=== PATIENT | female | born 1940 | race American Indian/Alaskan Native ===

== ENCOUNTER 2017-02-16 16:06 | Inpatient (IN) | payer MEDICARE ==
[2017-02-16 16:17] VITALS: BMI 24.6
[2017-02-16 16:28] LABS: ADD MANUAL DIFF? NO
--- NOTE | 2017-02-16 16:28 | ED PDOC ---
Arrival/HPI - General Chief Complaint: Weakness/Neurological Deficit Time Seen by Provider: 02/16/17 16:15 Historian: Patient - History of Present Illness Narrative History of Present Illness (Text): 02/16/17 16:31 A 76 year old female, whose past medical history includes hypertension, diabetes and hypothyroidism, presents to the emergency department with onset slurred speech around 15:30 today and stroke. Patient was baseline previous to episode. Patient symptoms currently resolved. Blood pressure during episode was 200 systolic. Denies fever or any other complaints at this time. Symptom Onset: Sudden Symptom Course: Improving Activities at Onset: Rest Context: Home Past Medical History - Provider Review Nursing Documentation Reviewed: Yes - Cardiac Hx Cardiac Disorders: Yes Hx Hypertension: Yes Hx Pacemaker: No - Pulmonary Hx Respiratory Disorders: No - Neurological Hx Neurological Disorder: No - HEENT Hx HEENT Disorder: Yes Hx Cataracts: Yes (BILAT IOL) - Renal Hx Renal Disorder: No - Endocrine/Metabolic Hx Endocrine Disorders: Yes Hx Diabetes Mellitus Type 2: Yes Hx Hypothyroidism: Yes (THYROIDECTOMY GOITER) - Hematological/Oncological Hx Blood Disorders: Yes Hx Anemia: Yes Hx Cancer: Yes (breast) - Integumentary Hx Dermatological Disorder: No - Musculoskeletal/Rheumatological Hx Musculoskeletal Disorders: No Hx Falls: No - Gastrointestinal Hx Gastrointestinal Disorders: Yes Other/Comment: DIVERTICULOSIS - Genitourinary/Gynecological Hx Genitourinary Disorders: No - Psychiatric Hx Psychophysiologic Disorder: No Hx Emotional Abuse: No Hx Physical Abuse: No Hx Substance Use: No - Surgical History Hx Mastectomy: Yes (on right) Other/Comment: Lumpectomy on left . - Anesthesia Hx Anesthesia Reactions: No Hx Malignant Hyperthermia: No - Suicidal Assessment Feels Threatened In Home Enviroment: No Family/Social History - Physician Review Nursing Documentation Reviewed: Yes Family/Social History: No Known Family HX Smoking Status: Never Smoked Hx Alcohol Use: No Hx Substance Use: No Allergies/Home Meds Allergies/Adverse Reactions: Allergies Penicillins Allergy (Severe, Verified 02/16/17 16:17) ANAPHYLAXIS CHOCOLATE Allergy (Severe, Uncoded 02/16/17 16:17) ITCHING Home Medications: Home Meds Medication Instructions Recorded Confirmed Aspirin [Ecotrin] 81 mg PO HS 01/18/16 02/16/17 Cholecalciferol (Vitamin D3) 4,000 unit PO DAILY MDD .noweekends 01/18/16 [Vitamin D3] Fish Oil/Vit E/Fat No.5/Hc137 1 cap PO .3TIMES A WEEK 01/18/16 02/16/17 [Super Stow-3 Softgel] Folic Acid/Mv,Iron,Min [Centrum 1 tab PO .TWICEPERWEEK 01/18/16 02/16/17 Chewable Tablet] Glimepiride 1 mg PO HS 01/18/16 02/16/17 Levothyroxine Sodium [Levoxyl] 88 mcg PO DAILY 01/18/16 02/16/17 Losartan/Hydrochlorothiazide 1 tab PO DAILY 01/18/16 02/16/17 [Hyzaar 25 mg-100 mg] Metformin ER [Glucophage XR] 750 mg PO BID 01/18/16 02/16/17 Potassium Chloride 10 meq PO MWF 01/18/16 02/16/17 Simvastatin 20 mg PO HS 01/18/16 02/16/17 amLODIPine [Norvasc] 10 mg PO DAILY 01/18/16 02/16/17 Review of Systems - Physician Review All systems were reviewed & negative as marked: Yes - Review of Systems Systems not reviewed;Unavailable: Acuity of Condition Physical Exam Vital Signs Reviewed: Yes Vital Signs Temp Pulse Resp BP Pulse Ox 02/16/17 18:45 98 F 71 20 153/71 H 98 02/16/17 17:15 162/76 H 02/16/17 16:17 98.4 F 106 H 16 173/79 H 95 Temperature: Afebrile Blood Pressure: Hypertensive Pulse: Tachycardic Respiratory Rate: Normal Appearance: Positive for: Well-Appearing, Non-Toxic, Comfortable Pain Distress: None Mental Status: Positive for: Alert and Oriented X 3 Finger Stick Blood Glucose: 147 - Systems Exam Head: Present: Atraumatic, Normocephalic Pupils: Present: PERRL Extroacular Muscles: Present: EOMI Conjunctiva: Present: Normal Mouth: Present: Moist Mucous Membranes Neck: Present: Normal Range of Motion Respiratory/Chest: Present: Clear to Auscultation, Good Air Exchange. No: Respiratory Distress, Accessory Muscle Use Cardiovascular: Present: Regular Rate and Rhythm, Normal S1, S2. No: Murmurs Abdomen: Present: Normal Bowel Sounds. No: Tenderness, Distention, Peritoneal Signs Back: Present: Normal Inspection Upper Extremity: Present: Normal Inspection. No: Cyanosis, Edema Lower Extremity: Present: Normal Inspection. No: Edema Neurological: Present: GCS=15, CN II-XII Intact, Speech Normal Skin: Present: Warm, Dry, Normal Color. No: Rashes Psychiatric: Present: Alert, Oriented x 3, Normal Insight, Normal Concentration Medical Decision Making ED Course and Treatment: 02/16/17 16:28 Impression: A 76 year old female with episode of stroke. Plan: -- EKG -- CT Head -- chest xray -- labs -- Reassess and disposition Prior Visits: Notes and results from previous visits were reviewed. Patient last reported to the emergency department on 05/28/16 for evaluation of elevated blood pressure. Progress Notes: 02/16/17 16:44 CT HEAD WITHOUT CONTRAST Creator : Harris Middleton MD FINDINGS: HEMORRHAGE: No intracranial hemorrhage. BRAIN: No mass effect or edema. No atrophy or chronic microvascular ischemic changes. VENTRICLES: Unremarkable. No hydrocephalus. CALVARIUM: Unremarkable. PARANASAL SINUSES: Unremarkable as visualized. No significant inflammatory changes. MASTOID AIR CELLS: Unremarkable as visualized. No inflammatory changes. OTHER FINDINGS: Heavily calcified carotid arteries IMPRESSION: No acute findings. - Lab Interpretations Lab Results: 02/16/17 16:20 02/16/17 16:20 Lab Results 02/16/17 16:40: Blood Type Confirm O POSITIVE 02/16/17 16:20: Blood Type O POSITIVE, Antibody Screen Negative, BBK History Checked No verified bt 02/16/17 16:20: Sodium 141, Potassium 3.4 L, Chloride 102, Carbon Dioxide 26, Anion Gap 16, BUN 12, Creatinine 0.7, Est GFR ( Amer) > 60, Est GFR (Non- Af Amer) > 60, Random Glucose 127 H, Calcium 8.6, Total Bilirubin 0.4, AST 23, ALT 23, Alkaline Phosphatase 75, Lactate Dehydrogenase 423, Total Creatine Kinase 132, Troponin I < 0.01, Total Protein 8.1, Albumin 4.5, Globulin 3.5, Albumin/Globulin Ratio 1.3, Triglycerides 268 H, Cholesterol 144, LDL Cholesterol Direct 82, HDL Cholesterol 31 02/16/17 16:20: PT 11.8, INR 1.09 H, APTT 26.6 02/16/17 16:20: WBC 11.5 H D, RBC 4.35, Hgb 11.4 L, Hct 34.9 L, MCV 80.2, MCH 26.2, MCHC 32.7, RDW 15.9 H, Plt Count 335, MPV 9.4, Gran % 67.3, Lymph % (Auto ) 26.0, [place] % (Auto) 3.7, Eos % (Auto) 2.7, Baso % (Auto) 0.3, Gran # 7.72 H, Lymph # 3.0, [place] # 0.4, Eos # 0.3, Baso # 0.03 I have reviewed the lab results: Yes - RAD Interpretation Radiology Orders: 02/16/17 16:19 HEAD W/O (CODE STROKE) [CT] Stat CHEST ONE VIEW [RAD] Stat - EKG Interpretation Interpreted by ED Physician: Yes Type: 12 lead EKG - Medication Orders Current Medication Orders: Amlodipine Besylate (Norvasc) 10 mg PO DAILY [facility] Aspirin (Ecotrin) 81 mg PO HS MARIANA Last Admin: 02/16/17 21:48 Dose: 81 mg Atorvastatin Calcium (Lipitor) 10 mg PO HS [facility] Last Admin: 02/16/17 21:47 Dose: 10 mg Cholecalciferol (Vitamin D) 4,000 iu PO DAILY MARIANA Glimepiride (Amaryl) 1 mg PO HS [facility] Last Admin: 02/16/17 21:47 Dose: 1 mg Hydrochlorothiazide (Hydrodiuril) 25 mg PO DAILY [facility] Insulin Human Regular (Humulin R Low) 0 units SC ACHS MARIANA PRN Reason: Protocol Last Admin: 02/16/17 22:00 Dose: Not Given Non-Admin Reason: Blood Sugar Parameter Levothyroxine Sodium (Synthroid) 88 mcg PO DAILY [facility] Losartan Potassium (Cozaar) 100 mg PO DAILY [facility] Metformin HCl (Glucophage Xr) 750 mg PO BID [facility] Non-Formulary Medication (Folic Acid/Mv,Iron,Min [Centrum Chewable Tablet]) 1 tab PO .TWICEPERWEEK MARIANA Discontinued Medications Aspirin (Aspirin) 325 mg PO STAT STA Stop: 02/16/17 16:46 Last Admin: 02/16/17 16:58 Dose: 325 mg NIHSS Scale ([place]) Time Performed: 16:20 - How Severe is the Stoke Baseline Level of Consciousness: 0=Alert LOC to Questions: 0=Both comments correct LOC to commands: 0=Obeys both correctly Best Gaze: 0=Normal Visual: 0=No visual loss Facial: 0=Normal Motor Arm - Left: 0=No drift Motor Arm - Right: 0=No drift Motor Leg - Left: 0=No drift Motor Leg - Right: 0=No drift Limb Ataxia: 0=Absent Sensory: 0=Normal Best Language: 0=No aphasia Dysarthia: 0=Normal articulation Extinction & Inattention (Neglect): 0=Normal, no object Score: 0 Risk Level: No Stroke Risk rTPA Inclusion/Exclusion - Refusal of Treatment Patient Refused Treatment: No - Inclusion Criteria for Altepase Patient is 18 years or Older: Yes The Clinical Diagnosis of Ischemic Stroke That is Causing a Potentially Disabling Neurological Deficit: No Time of Onset is Well Established to be Less Than 270 Minute Before Treatment Would Begin: Yes Risk/Benefit Discussed With Patient/Family Member Present: No - Scribe Statement The provider has reviewed the documentation as recorded by the Karleyibdanna Vinson Provider Scribe Attestation: All medical record entries made by the Karleyibdanna were at my direction and personally dictated by me. I have reviewed the chart and agree that the record accurately reflects my personal performance of the history, physical exam, medical decision making, and the department course for this patient. I have also personally directed, reviewed, and agree with the discharge instructions and disposition. Disposition/Present on Arrival - Present on Arrival Any Indicators Present on Arrival: No History of DVT/PE: No History of Uncontrolled Diabetes: No Urinary Catheter: No History of Decub. Ulcer: No History Surgical Site Infection Following: None - Disposition Have Diagnosis and Disposition been Completed?: Yes Diagnosis: Slurred speech Disposition: HOSPITALIZED Disposition Time: 05:00 Condition: GOOD
[2017-02-16 16:31] LABS: BASO # 0.03 K/mm3 (0.0-2.0); BASO % 0.3 % (0.0-3.0); EOS # 0.3 (0.0-0.7); EOS % 2.7 % (1.5-5.0); GRAN # 7.72 (1.4-6.5); GRAN % 67.3 % (50.0-68.0); HEMATOCRIT 34.9 % (36.0-48.0); MEAN CELL VOLUME 80.2 fL (80.0-105.0); MEAN CORPUSCULAR HEMOGLOBIN 26.2 pg (25.0-35.0); MEAN CORPUSCULAR HGB CONC 32.7 g/dl (31.0-37.0); MEAN PLATELET VOLUME 9.4 fl (7.0-11.0); MONO # 0.4 (0.1-0.6); MONO % 3.7 % (1.0-6.0); PLATELET COUNT 335 10^3/uL (120.0-450.0); RED CELL DISTRIBUTION WIDTH 15.9 % (11.5-14.5); WHITE BLOOD COUNT 11.5 10^3/ul (4.5-11.0)
[2017-02-16 16:41] LABS: ALB/GLOB RATIO 1.3 (1.1-1.8); ALKALINE PHOSPHATASE 75 U/L (38-133); ALT/SGPT 23 U/L (7-56); AST/SGOT 23 U/L (15-39); BILIRUBIN,TOTAL 0.4 mg/dL (0.2-1.3); BLOOD UREA NITROGEN 12 mg/dL (7-21); CALCIUM 8.6 mg/dL (8.4-10.5); CARBON DIOXIDE 26 mmol/L (21-33); CHLORIDE 102 mmol/L (98-107); CHOLESTEROL 144 mg/dL (130-200); GFR AFRICAN-AMERICAN > 60; GLUCOSE,RANDOM 127 mg/dL (70-110); POTASSIUM 3.4 mmol/L (3.6-5.0); SODIUM 141 mmol/L (132-148); TOTAL PROTEIN 8.1 g/dL (5.8-8.3)
--- NOTE | 2017-02-16 16:42 | CT ---
PROCEDURE: CT HEAD WITHOUT CONTRAST. HISTORY: Code Stroke COMPARISON: None available. TECHNIQUE: Axial computed tomography images were obtained through the head/brain without intravenous contrast. Radiation dose: Total exam DLP = 722 mGy-cm. This CT exam was performed using one or more of the following dose reduction techniques: Automated exposure control, adjustment of the mA and/or kV according to patient size, and/or use of iterative reconstruction technique. FINDINGS: HEMORRHAGE: No intracranial hemorrhage. BRAIN: No mass effect or edema. No atrophy or chronic microvascular ischemic changes. VENTRICLES: Unremarkable. No hydrocephalus. CALVARIUM: Unremarkable. PARANASAL SINUSES: Unremarkable as visualized. No significant inflammatory changes. MASTOID AIR CELLS: Unremarkable as visualized. No inflammatory changes. OTHER FINDINGS: Heavily calcified carotid arteries IMPRESSION: No acute findings
[2017-02-16 16:47] LABS: INR 1.09 (0.93-1.08); PARTIAL THROMBOPLASTIN TIME 26.6 Seconds (23.7-30.8)
[2017-02-16 16:55] LABS: TROPONIN I < 0.01 ng/mL
[2017-02-16] MEDS ORDERED: FOLIC ACID PO SCH (19:15)
[2017-02-16] MEDS ORDERED: MV IRON MIN PO SCH (19:15)
[2017-02-16] MEDS ORDERED: GLIMEPIRIDE 1 MG PO SCH (22:00)
[2017-02-16] MEDS: Insulin Reg-LOW-Coverage SC SCH (22:00)
[2017-02-16] MEDS ORDERED: Non Formulary Medication (Simvastatin [Simvastatin] 20 MG) PO SCH (22:00)
[2017-02-17] MEDS: Insulin Reg-LOW-Coverage SC SCH ×4 (08:12→22:00)
--- NOTE | 2017-02-17 08:18 | RAD ---
PROCEDURE: CHEST RADIOGRAPH, 1 VIEW HISTORY: code stroke COMPARISON: 03/18/2016 FINDINGS: LUNGS: Clear. PLEURA: No pneumothorax or pleural fluid seen. CARDIOVASCULAR: Normal. OSSEOUS STRUCTURES: No significant abnormalities. VISUALIZED UPPER ABDOMEN: Normal. OTHER FINDINGS: None. IMPRESSION: No active disease.
[2017-02-17] MEDS: Levothyroxine 88 MCG TAB PO SCH (09:31)
[2017-02-17] MEDS ORDERED: Potassium Chloride 20 mEq ER Tab PO ONE (09:48)
[2017-02-17] MEDS ORDERED: CHOLECALCIFEROL 4000 UNIT PO SCH (10:00)
[2017-02-17] MEDS ORDERED: Non Formulary Medication (Losartan/Hydrochlorothiazide [Hyzaar 100-25 Tablet] 1 TAB) PO SCH (10:00)
--- NOTE | 2017-02-17 10:27 | CON ---
DATE: 02/17/2017 CHIEF COMPLAINT: Slurred speech. HISTORY OF PRESENTING ILLNESS: This is a 76-year-old woman, past medical history of hypertension, di abetes, hypothyroidism, presented to the hospital for slurred speech around 1530 on 02/16/2017, but n o focal weakness. Her slurred speech resolved immediately in the ER. En route to the hospital, her blood pressure was noted elevated, systolic of 200. Currently, she has no focal neurological deficit s on exam except for mild diabetic peripheral neuropathy. No pronator drift seen. CT of the head ju st showed chronic ischemic changes, no acute intracranial abnormality. She will go for an MRI of the brain. She is on aspirin and statin. Her last A1c recently was 6.4. Her triglycerides are high of 268. No acute events overnight. ALLERGIES: ALLERGIC TO PENICILLIN AND CHOCOLATE. REVIEW OF SYSTEMS: A 14-point is negative except for in the HPI. SOCIAL HISTORY: No illicit drug use, smoking, or ETOH abuse. FAMILY HISTORY: Noncontributory. MEDICATIONS: Reviewed via nurse's reconciliation sheet. PHYSICAL EXAMINATION: VITAL SIGNS: Temperature 98, pulse rate of 67, blood pressure 123/75, respiratory rate of 17, oxygen saturation 96% via room air. GENERAL: The patient is sitting up in bed, in no acute distress. HEART: S1, S2, normal rate and rhythm. No murmurs, rubs, or gallops. ABDOMEN: Soft, nontender, nondistended. Bowel sounds present. EXTREMITIES: No clubbing, no cyanosis. Peripheral pulses 2+ felt bilaterally. NEUROLOGIC: The patient is alert, oriented to person, place, month and year. Speech is fluent, with out any errors. Cranial nerves II-XII intact. MOTOR: Moves all extremities equally. Toes downgoing bilaterally. SENSORY: Light touch, pinprick, proprioception, vibration intact. DEEP TENDON REFLEXES: 2+ throughout. COORDINATION: [id number] intact. LABORATORIES: Sodium is 141, potassium 3.4, chloride of 102, carbon dioxide 26, BUN of 12, creatinin e 0.7. Random glucose 127. Triglycerides 268, LDL is 82, HDL is 31, total cholesterol is 144. ASSESSMENT AND PLAN: A 76-year-old woman with history of hypertension, hypothyroidism, diabetes, had a transient onset of slurred speech, which is currently resolved. She was found to have elevated sy stolic blood pressure of 200 en route, but currently her blood pressures are stabilized. Likely, her slurred speech was secondary to underlying mild transient ischemic attack from hypertensive urgency. At this time, she is clinically stable, recommend: 1. Aspirin 81 mg, Lipitor 10 mg for stroke prevention. 2. Keep her blood sugars between 140-180 and I advised a diabetic diet. 3. Recommend getting MRI of the brain without contrast to assess for any lacunar infarction and echo cardiogram and carotid Doppler. 4. At this time, continue with current present medical management. She is clinically stable. Dominic Valenzuela MD cc: [id number] TT: 02/17/2017 10:26:39 Confirmation # [id number] Dictation # [id number] en
--- NOTE | 2017-02-17 12:52 | MRI ---
PROCEDURE: MRI BRAIN WITHOUT CONTRAST HISTORY: cva COMPARISON: None. TECHNIQUE: Multiplanar, multisequence MR images of the brain were obtained without intravenous contrast enhancement. FINDINGS: HEMORRHAGE: None DWI: No evidence of an acute or early subacute infarction. BRAIN PARENCHYMA: No mass effect or edema. No atrophy or chronic microvascular ischemic changes. VENTRICLES: Unremarkable. No hydrocephalus. CRANIUM: Unremarkable. ORBITS: Grossly unremarkable. PARANASAL SINUSES/MASTOIDS: Clear VASCULAR SYSTEM: Skull base flow voids intact. OTHER FINDINGS: None. IMPRESSION: Unremarkable non contrast enhanced MRI of the brain.
--- NOTE | 2017-02-18 01:21 | CARD ---
APPROVED REPORT EKG Measurement Heart [id number] <Conclusion> Normal sinus rhythm Normal ECG
[2017-02-18] MEDS: Insulin Reg-LOW-Coverage SC SCH ×4 (07:48→21:34)
--- NOTE | 2017-02-18 08:40 | HP ---
CHIEF COMPLAINT: Weakness, slurring of speech. HISTORY OF PRESENT ILLNESS: The patient is a 76-year-old female with past medical history of hypertension, diabetes mellitus, hypothyroidism. Came to the Emergency Room with onset of slurring speech. The patient was baseline previous to that. The patient's symptoms currently resolved when I saw the patient in her room. Blood pressure during episode was 200 systolic. No fever , no chills. No nausea, vomiting, diarrhea. No hematuria, no hematochezia. No swelling of the legs. No chest pain, no palpitation. PAST MEDICAL HISTORY: Hypertension, bilateral cataract surgery, diabetes mellitus type 2, history of thyroidectomy due to goiter, history of anemia, history of gastric cancer, diverticulosis, right mastectomy. FAMILY HISTORY: Father and mother noncontributory. HABITS: Never smoked, no drugs, no ethanol. ALLERGIES: THE PATIENT IS ALLERGIC WITH PENICILLIN AND CHOCOLATE. HOME MEDICATIONS: Ecotrin, vitamin D, fish oil, folic acid, glimepiride, levothyroxine, Hyzaar, metformin, potassium, simvastatin, amlodipine. REVIEW OF SYSTEMS: The patient seen and examined on the bedside. Friend was sitting on the bedside also. Her power is back to normal, 4/4 in all 4 extremities. Speech is back to normal. No nausea, vomiting, diarrhea. No hematuria, no hematochezia. No swelling of the legs. No chest pain, no palpitation, no headache, no dizziness. PHYSICAL EXAMINATION: VITAL SIGNS: Temperature 98, pulse 85, blood pressure 123/75, respiratory rate 17. HEENT: Head normocephalic, atraumatic. Eyes: PERRLA. Extraocular muscles intact. Conjunctivae clear. Nose patent. Mucous membranes moist. NECK: Supple. No carotid bruit, no JVD, no thyromegaly. CHEST: Bilaterally symmetrical. HEART: S1, S2 positive. LUNGS: Clear to auscultation. ABDOMEN: Soft. Bowel sounds positive. No organomegaly. EXTREMITIES: No edema, no cyanosis. NEUROLOGIC: The patient is awake, alert, moving all 4 extremities. No focal deficit. LABORATORIES: White blood cells 11.5, hemoglobin 11.4, hematocrit 34.9, platelets 335. Sodium 141, potassium 3.4, BUN 12, creatinine 0.7. Glucose 145 , 119, 127. Triglycerides 268. ASSESSMENT AND PLAN: The patient is a 76-year-old lady with hypokalemia, hyperglycemia, hypertriglyceridemia, leukopenia, anemia. Came with slurring of the speech. Seen by neurologist, Dr. Valenzuela. CAT scan of the head and MRI of the head done. History of hypertension, hypothyroidism, diabetes mellitus, transient ischemic attack with the onset of slurring of speech which is currently resolved. The patient's systolic blood pressure was 200, but currently her blood pressure is stabilized. Likely, her slurred speech was secondary to underlying mild transient ischemic attack from the hypertensive urgency. Now, patient is clinically stable. We will continue aspirin, Lipitor. Keep blood pressure between 140 and 180. Diabetic diet. MRI of the head without contrast to assess of any lacunar infarction and echocardiogram and carotid Doppler. MRI of the head done, unremarkable noncontrast enhanced MRI of the brain. Gastrointestinal and deep venous thrombosis prophylaxis. Repeat labs. Will follow up. Peggy Walter MD cc: [id number] TT: 02/18/2017 08:39:53 en MTDD
[2017-02-18] MEDS: Levothyroxine 88 MCG TAB PO SCH (09:36)
[2017-02-18 10:26] LABS: ALB/GLOB RATIO 1.2 (1.1-1.8); ALKALINE PHOSPHATASE 64 U/L (38-133); ALT/SGPT 26 U/L (7-56); AST/SGOT 22 U/L (15-39); BILIRUBIN,TOTAL 0.6 mg/dL (0.2-1.3); BLOOD UREA NITROGEN 16 mg/dL (7-21); CALCIUM 9.3 mg/dL (8.4-10.5); CARBON DIOXIDE 31 mmol/L (21-33); GFR AFRICAN-AMERICAN > 60; GLUCOSE,RANDOM 148 mg/dL (70-110); POTASSIUM 3.6 mmol/L (3.6-5.0); SODIUM 140 mmol/L (132-148); TOTAL PROTEIN 8.5 g/dL (5.8-8.3)
[2017-02-18 10:33] LABS: CHLORIDE 97 mmol/L (98-107)
--- NOTE | 2017-02-18 11:17 | CP.PCM.PCO ---
Physician Communication Note - Physician Communication Note Physician Communication Note: mri brain reveiwed. NO CVA. Stable from Neuro.
--- NOTE | 2017-02-18 17:33 | CARD ---
APPROVED REPORT EXAM: Two-dimensional and M-mode echocardiogram with Doppler and color Doppler. INDICATION CVA/TIA 2D DIMENSIONS Left Atrium (2D)3.6 (1.6-4.0cm)IVSd1.2 (0.7-1.1cm) LVDd3.9 (3.9-5.9cm)PWd1.4 (0.7-1.1cm) LVDs2.6 (2.5-4.0cm)FS (%) 33.7 % LVEF (%)63.1 (>50%) M-Mode DIMENSIONS Aortic Root3.70 (2.2-3.7cm)Aortic Cusp Exc.1.40 (1.5-2.0cm) Aortic Valve AoV Peak Enggtddw399.0cm/sAoV VTI30.0cmAO Peak GR.9mmHg AO Mean GR.6mmHg Mitral Valve MV E Gvaguhug55.8cm/sMV A Tpgjsrsu426.0cm/sE/A ratio0.5 TDI Lateral E' Peak V7.99cm/sMedial E' Peak V4.00cm/sE/Lateral E'6.4 E/Medial E'12.7 Pulmonary Valve PV Peak Ssajvper57.5cm/sPV Peak Grad.2mmHg Tricuspid Valve TR Peak Uikgzjrq428sh/sRAP JENPFAWM34wyVzWV Peak Gr.31mmHg [id number] LEFT VENTRICLE The left ventricle is normal size. There is mild concentric left ventricular hypertrophy. The left ventricular function is normal.EF-60-65% There is normal LV segmental wall motion. Transmitral Doppler flow pattern is Grade III-reversible restrictive diastolic dysfunction. No left ventricle thrombus noted on this study. There is no ventricular septal defect visualized. There is no left ventricular aneurysm. There is no mass noted in the left ventricle. RIGHT VENTRICLE The right ventricle is normal size. There is normal right ventricular wall thickness. The right ventricular systolic function is normal. ATRIA The left atrium size is normal. The right atrium size is normal. The interatrial septum is intact with no evidence for an atrial septal defect. AORTIC VALVE The aortic valve is moderately sclerotic. There is trace aortic regurgitation. There is no aortic valvular stenosis. There is no aortic valvular vegetation. MITRAL VALVE The mitral valve is thickened but opens well. Mitral annular calcification is mild. Mitral regurgitation is trace. There is no mitral valve stenosis. There is no evidence of mitral valve prolapse. TRICUSPID VALVE The tricuspid valve leaflets are thickened , but open well. There is mild tricuspid regurgitation.RVSP-41 mmof hg. There is no tricuspid valve stenosis. There is no tricuspid valve prolapse or vegetation. PULMONIC VALVE The pulmonary valve is normal in structure. There is trace pulmonic valvular regurgitation. There is no pulmonic valvular stenosis. GREAT VESSELS The aortic root is normal in size. The ascending aorta is normal in size. a small mobile Plaque noted in Ascending aorta. The pulmonary artery is normal. The IVC is normal in size and collapses >50% with inspiration. PERICARDIAL EFFUSION There is no pleural effusion. There is no pericardial effusion. <Conclusion> Nprmal Chamber Size. EF-60-65% There is trace aortic regurgitation. Mitral regurgitation is trace. There is mild tricuspid regurgitation.RVSP-41 mmof hg. No thrombus or vegetation Noted A small mobile plaque noted in Ascending aorta.
--- NOTE | 2017-02-18 18:36 | PN ---
DATE: 02/18/2017 This is a 76-year-old black female with a past medical history of diabetes, hypertension, hypothyroid ism, came to the hospital with slurred speech. CAT scan of the head showed only ischemic changes. M RI of the head was negative. The patient is feeling much better and her blood pressure was high. ALLERGIES: PENICILLIN AND CHOCOLATE. PHYSICAL EXAMINATION: HEENT: Normocephalic, atraumatic. NECK: Supple. NEUROLOGIC: Alert, awake, oriented x 3. No aphasia. Cranial nerves II through XII were tested. Pu pils reactive. Spontaneous movement of all the extremities noted. Deep tendon reflexes 1+. Both pl antars are downgoing. Sensory appears intact. Cerebellar and gait deferred. IMPRESSION: This is a 76-year-old black female with a past medical history of hypertension, diabetes and came with slurring of speech, which has resolved. CAT scan and MRI was negative and blood press ure is under control now. PLAN: Continue present management. Will followup. Artis Valenzuela MD cc: [id number] TT: 02/18/2017 18:36:14 Confirmation # [id number] Dictation # [id number] adriana
--- NOTE | 2017-02-18 20:57 | US ---
PROCEDURE: Bilateral carotid artery duplex ultrasound HISTORY: Carotid stenosis CVA PHYSICIAN(S): Arun Jones MD. TECHNIQUE: Duplex sonography and color-flow Doppler were used to evaluate the carotid bifurcations and limited segments of the vertebral arteries bilaterally. The exam is somewhat limited by tortuous vessels. FINDINGS: There is mild to moderate focal smooth heterogeneous plaque noted at the carotid bifurcations bilaterally. The peak systolic velocity in the proximal right internal carotid artery is 63 cm/sec. This corresponds to a 20 to 39% proximal right ICA stenosis. Normal systolic velocities are noted in the proximal right external carotid artery. There is antegrade flow in the right vertebral artery. The peak systolic velocity in the proximal left internal carotid artery is 71 cm/sec. This corresponds to a 20 to 39% proximal left ICA stenosis. Normal systolic velocities are noted in the proximal left external carotid artery. There is antegrade flow in the left vertebral artery. IMPRESSION: 1. Bilateral 20-39% proximal ICA stenoses. 2. Antegrade flow in both vertebral arteries.
[2017-02-19 06:01] LABS: HOMOCYSTEINE 6.4 umol/L (<10.4)
[2017-02-19 07:52] LABS: HEMATOCRIT 35.4 % (36.0-48.0); MEAN CORPUSCULAR HEMOGLOBIN 25.9 pg (25.0-35.0); MEAN CORPUSCULAR HGB CONC 32.8 g/dl (31.0-37.0); MEAN PLATELET VOLUME 9.4 fl (7.0-11.0); RED CELL DISTRIBUTION WIDTH 15.7 % (11.5-14.5); WHITE BLOOD COUNT 6.6 10^3/ul (4.5-11.0)
[2017-02-19 08:02] LABS: BLOOD UREA NITROGEN 18 mg/dL (7-21); CALCIUM 8.8 mg/dL (8.4-10.5); CARBON DIOXIDE 29 mmol/L (21-33); CHLORIDE 100 mmol/L (98-107); GFR AFRICAN-AMERICAN > 60; GLUCOSE,RANDOM 86 mg/dL (70-110); POTASSIUM 3.7 mmol/L (3.6-5.0); SODIUM 140 mmol/L (132-148)
[2017-02-19] MEDS: Insulin Reg-LOW-Coverage SC SCH ×2 (08:20→11:43)
[2017-02-19 08:36] VITALS: BP 141/81; RESP 18; TEMP 98; O2SAT 98
[2017-02-19] MEDS: Levothyroxine 88 MCG TAB PO SCH (09:36)
[2017-02-19 13:27] VITALS: PULSE 71
== END 2017-02-19 16:26 | disposition home or self-care (01) | DRG 66 ==
LOC: ED 16:06 → ERH 17:17 → 3RSO 18:51
PROVIDERS: ADMIT Internal Medicine; ATTEND Internal Medicine
DX: I63.9 Cerebral infarction, unspecified (principal); E11.42 Type 2 diabetes mellitus with diabetic polyneuropathy; E11.65 Type 2 diabetes mellitus with hyperglycemia; D64.9 Anemia, unspecified; D72.819 Decreased white blood cell count, unspecified; E78.1 Pure hyperglyceridemia; E87.6 Hypokalemia; E89.0 Postprocedural hypothyroidism; I10 Essential (primary) hypertension; I16.0 Hypertensive urgency; Z79.82 Long term (current) use of aspirin; Z79.899 Other long term (current) drug therapy; Z85.028 Personal history of other malignant neoplasm of stomach; Z88.6 Allergy status to analgesic agent; Z88.0 Allergy status to penicillin; Z91.018 Allergy to other foods; Z87.892 Personal history of anaphylaxis; R40.2412 Glasgow coma scale score 13-15, at arrival to emergency department

== ENCOUNTER 2017-10-02 09:39 | Day surgery (SDC) | payer MEDICARE, OTHER ==
[2017-09-26 10:34] VITALS: BMI 23.1
[~2017-10-02 09:39] MED LIST: Lactated Ringer's 1,000 ML IV SCH
[2017-10-02] MEDS ORDERED: Propofol 10 mg/ml Inj (20 ML) ONE (10:00)
[2017-10-02 10:42] VITALS: TEMP 98
[2017-10-02 11:49] VITALS: O2SAT 97
[2017-10-02 12:48] VITALS: PULSE 65; RESP 15
[2017-10-02 12:49] VITALS: BP 121/71
== END 2017-10-02 12:56 | disposition home or self-care (01) ==
LOC: ENDO 09:39
PROVIDERS: ATTEND Specialist
DX: K31.7 Polyp of stomach and duodenum (principal); E11.9 Type 2 diabetes mellitus without complications; I10 Essential (primary) hypertension; E78.5 Hyperlipidemia, unspecified; Z85.3 Personal history of malignant neoplasm of breast
CPT/HCPCS: 43239; 88305; 88342; J2001; J2704; J3010; J7040; J7120